=== PATIENT | male | born 1965 | race Caucasian/White ===

== ENCOUNTER 2016-06-08 16:16 | Emergency (ER) | payer OTHER ==
[~2016-06-08] VITALS: Ht 180.3 cm; Wt 79.1 kg
[2016-06-08 16:37] VITALS: BP 122/80; PULSE 106; RESP 17; O2SAT 99
--- NOTE | 2016-06-08 16:56 | ED.REPORT ---
HPI-Extremity Problem Lower Date of Service Jun 08, 2016 ED Provider: Dr. Duran Casanova MD A 50 year old homeless male with a history of pre-COPD presents to the ED complaining of left foot pain that began a few days ago. Patient reports that he was sleeping outside when his symptoms first began. Associated symptoms include numbness in the left foot, chills and swelling in the left leg. Patient was sent from Urgent Care with concern for frostbite. He denies fever. Nursing Notes Stated Complaint: LEFT FOOT FROSTBITE/SENT FROM URGENT CARE Chief Complaint: Extremity Trauma Nursing Notes Reviewed: Yes Allergies: Coded Allergies: No Known Allergies (Unverified , 06/08/16) General Time Seen by MD: 16:55 Chief Complaint Other (Left foot pain) Hx Obtained From: Patient Arrived By: Walk-in Onset Occurred: 3 days ago Symptom Duration: Since onset Location: : Foot left Quality: Painful Severity: Current: Mild Severity: Maximum: Moderate Associated with: Reports: Numb extremities, Denies: Fever Pertinent Negative: Pt denies other symptoms Recent Healthcare: No recent doctor visit Past Medical History Past Medical History "pre-COPD" Past Surgical History None reported. Smoking History Current Every Day Smoker Social History Other Social History: Good social support, Homeless Ambulatory Status Independent Review of Systems Constitutional: Reports: Chills, Denies: Fever Musculoskeletal: Reports: Extremity pain (Left foot pain ) Neurologic: Reports: Numbness (Right Foot ), Denies: Change LOC Complete sys rev & neg: except as marked. Respiratory: Denies: Shortness of breath Cardiovascular: Denies: Chest pain GI: Denies: Abdominal pain, Nausea, Vomiting Physical Exam Initial Vital Signs Vital Signs (First) Date Time Temp Pulse Resp B/P Pulse Ox O2 Delivery O2 Flow Rate FiO2 06/08/16 16:37 36.8 106 17 122/80 99 Room Air Initial VS: Reviewed Head / Eyes: Atraumatic, Normocephalic, PERRL Upper Extremities: Vascular intact, Neuro intact, No swelling, No tenderness Skin: Warm, Dry, No cyanosis Neurologic: Alert, Oriented, Nonfocal Psychiatric: Mood/affect normal, Behavior normal, Normal thought content Lower Extremity / Pelvis / MS: Atraumatic, Neurologic intact, Vascular intact Left Leg / Calf: Positive: Swelling present... Ankle / Foot: Atraumatic, Neurologic intact, Vascular intact ANKLE/FOOT: Ulcer over the dorsal right great toe IP joint Large blister great toe and on the plantar surfaces of all the toes. General/Constitutional: Awake, Alert Respiratory / Chest: Atraumatic, Breath sounds NL, Breath sounds = bilat Cardiovascular: Heart rate NL, Regular rhythm, Heart sounds NL Procedures 1643 Left Foot Time out performed Prepped for Betadine gauze wrapping Blisters and ulcerations opened with 16 gauge needle in all 5 toes. Patient condition improved He tolerates the procedure well Re-Eval/Medical Decision Re-Evaluation/Progress : Time of Eval: 17:19 Patient Status: Condition improved Re-Evaluation/Progress Note: Patient is rechecked. He states that he is feeling much better and is requesting to be discharged. He is informed of his exam results and diagnosis. All questions are addressed. He understands and agrees with the treatment plan. Consultation : Referral / Consult Name: Jcarlos Mccain DPM Call Returned at: 17:19 Stock Grader: Will see patient, Agrees with eval, Agrees with plan Note: Podiatry Counseled Regarding: Diagnosis, Lab results, Need for follow-up, When/why to return to ED Discharge & Departure Impression: Primary Impression: Frostbite of left foot Encounter type: initial encounter Qualified Code: T33.822A - Superficial frostbite of left foot, initial encounter Disposition: Home Discharge Condition All VS Reviewed: Yes Condition: Stable Patient Instructions: Frostbite (ED) Additional Instructions: Thank you for trusting us with your care this evening. Your emergency department evaluation is reassuring that there is no current evidence of infection but I highly recommend you schedule an appointment with either Dr. Mccain, the hauling contractor, or your primary care physician in the next 2-3 days for a recheck. Keep the wrap on until you able to follow up with a physician. Please return to the emergency department for any new or worsening symptoms. Referrals: [facility] Jcarlos Mccain DPMibhansle Attestation Portions of this note were transcribed by Juan Carlos Belle. I, Dr. Casanova personally performed the history, physical exam and medical decision-making; I reviewed and confirmed the accuracy of the information in the transcribed note. Signed by: Raul Boyd, 06/08/16 Duran Rodriguez MD Jun 08, 2016 16:56 JUAN CARLOS BELLE Jun 08, 2016 17:02 Duran Casanova MD Jun 08, 2016 16:56 JUAN CARLOS BELLE Jun 08, 2016 17:02
[2016-06-08 17:37] VITALS: BP 131/84; PULSE 111; RESP 17; O2SAT 99
[2016-06-08 18:16] VITALS: BP 125/71; PULSE 93; RESP 21; O2SAT 99
== END 2016-06-08 18:17 | disposition home or self-care (01) ==
LOC: SED 16:16
DX: T33.822A Superficial frostbite of left foot, initial encounter (principal); X31.XXXA Exposure to excessive natural cold, initial encounter; Y93.89 Activity, other specified; Y99.8 Other external cause status; Y92.89 Other specified places as the place of occurrence of the external cause; F17.200 Nicotine dependence, unspecified, uncomplicated; Z59.0 Homelessness

== ENCOUNTER 2016-07-10 14:18 | Emergency (ER) | payer OTHER ==
--- NOTE | 2016-07-10 14:36 | ED.REPORT ---
HPI-Cardiac Arrest Date of Service Jul 10, 2016 ED Provider: Tere Pride MD History of Present Illness: 50-year-old gentleman. At home with his girlfriend. Witnessed collapse. Reported 5 minutes of down time. 911 was called. CPR was started by family. medics arrived approximately 6 minutes later and found him to be in PEA. Was given epinephrine, rhythm changed to ventricular fibrillation. Shocked multiple times, given multiple doses of epinephrine, loaded with amiodarone. CPR continued. Patient was in the [place] area. Medics called from scene requesting medical advice. Given his young age, witnessed arrest and unknown events surrounding it, did recommend that they transported to the emergency room for further evaluation. Transport instituted, approximately 20 minutes transport time. By time patient arrived in the emergency room was almost 50 minutes since the original arrest. Patient was intubated. Had never received sedation nor paralytics. Ongoing highly quality CPR was continued. Patient was durant mottled. Pupils were fixed and dilated. Bilateral chest thoracotomies had been performed to rule out tension pneumothorax as possible cause of his refractory refractory ventricular fibrillation On arrival compressions were held and patient was in asystole with rare escaped agonal beat Prolonged downtime, code was called. Time of is 14:20 Unknown cause of . Patient was at known drug house with IV heroin and methamphetamine drug paraphernalia about the house. Has been seen at the wound care clinic with a left foot cellulitis recently. Review of medical records indicate history of homelessness, long-term smoker, COPD. Nursing Notes Stated Complaint: COLLAPSE Chief Complaint: Critical Care/Intubated Allergies: Coded Allergies: No Known Allergies (Unverified , 06/08/16) General Time Seen by Provider: 14:18 Chief Complaint Cardiac arrest, found dwn Down Time Prior to EMS: 1 - 20 min Total Time Arrest to Arrival: 41 - 60 min Context: Resuscitation: Initial rhythm V Fib, Initial rhythm PEA, Defibrillation X 3 (at least), Epinephrine IV X 3 (at least), Needle thoracost right, Needle thoracost left Hx Obtained From: EMS Arrived By: Ambulance Onset Occurred: 46 - 59 minutes ago Past Medical History Past Medical History "pre-COPD" Past Surgical History None reported. Smoking History Current Every Day Smoker Social History Other Social History: Good social support, Homeless Ambulatory Status Independent Review of Systems Unable to Obtain ROS Intubated Physical Exam Physical Exam Notes: CPR on arrival. Patient cold, durant, mottled Dilated pupils, fixed Bilateral breath sounds with bagged respiratory effort Distended abdomen presumably from prolonged bagging and initial unsuccessful intubation attempt Left foot with bandage in place Remainder of exam is deferred, code called shortly after arrival Initial Vital Signs code called upon arrive in ED Initial VS: Reviewed Discharge & Departure Impression: Primary Impression: Cardiac arrest Disposition: Condition: Referrals: NOPCP (PCP) Tere Pride MD Jul 10, 2016 14:36
--- NOTE | 2016-07-10 15:03 | NUR ---
spiritual care: staff corporation pilot updated about pt's and available for assistance with family if needed.
== END 2016-07-10 17:46 | disposition expired ==
LOC: SED 14:18
DX: I46.9 Cardiac arrest, cause unspecified (principal); F17.200 Nicotine dependence, unspecified, uncomplicated